=== PATIENT | male | born 1970 | race Caucasian/White ===

== ENCOUNTER 2017-03-19 15:53 | Inpatient (IN) | payer MEDICAID ==
[2017-03-19] MEDS ORDERED: 0.9 % SODIUM CHLORIDE 1000ML 1,000 ML IV PRN ×2 (16:19→18:19)
--- NOTE | 2017-03-19 16:24 | Emergency Department Record ---
History of Present Illness - General Chief complaint: Extremity Problem Stated complaint: R CALF INFECTION Time Seen by Provider: 03/19/17 16:15 Source: Patient, RN notes reviewed Mode of Arrival: Wheelchair - History of Present Illness Initial comments: red lower extremity and he states he had cellulitis before Onset/Timin -: Days(s) Location: Right, Lower Leg History of Same: Yes Radiation: None Severity scale (1-10): 5 Quality: Other Consistency: Constant Improves with: Nothing Worsens with: Nothing Associated Symptoms: Denies other symptoms - Related Data Home Medications Medication Instructions Recorded Confirmed Last Taken Diltiazem HCl [Diltiazem 24hr Er] 240 mg PO DAILY 30 Days 02/12/17 03/19/17 Unknown Hydrochlorothiazide 12.5 mg PO DAILY 30 Days 02/12/17 03/19/17 Unknown Mv-Min/FA/Vit K/Lycop/Lut/Zeax 1 each PO DAILY tab 02/12/17 03/19/17 Unknown [Ocuvite Eye + Multi Tablet] Fluticasone Propionate 1 spray IH DAILY 03/19/17 03/19/17 Unknown [Fluticasone Propionate] Montelukast Sodium [Singulair] 10 mg PO QHS 03/19/17 03/19/17 Unknown Nebivolol HCl [Bystolic] 10 mg PO DAILY 03/19/17 03/19/17 Unknown Allergies Allergy/AdvReac Type Severity Reaction Status Date / Time No Known Drug Intolerances Allergy Unknown Unverified 02/16/17 17:10 Allergies: Allergy Unknown Uncoded 12/22/13 10:12 Travel Screening - Travel/Exposure Within Last 30 Days Have you traveled within the last 30 days?: No Past Medical History - SOCIAL HISTORY Smoking Status: Former smoker Alcohol Use: Occasional Drug Use: None - RESPIRATORY Hx Respiratory Disorders: No - CARDIOVASCULAR Hx Cardio Disorders: No - NEURO Hx Neuro Disorders: No - GI Hx GI Disorders: No - Hx Genitourinary Disorders: No - ENDOCRINE Hx Endocrine Disorders: No - MUSCULOSKELETAL Hx Musculoskeletal Disorders: No - PSYCH Hx Psych Problems: No - HEMATOLOGY/ONCOLOGY Hx Hematology/Oncology Disorders: No Family Medical History Any Significant Family History?: No Course Vital Signs 03/19/17 16:02 Temperature 99.3 F Pulse Rate 115 H Respiratory 22 Rate Blood Pressure 106/58 Pulse Ox 95 - Reevaluation(s) Reevaluation #1: Discussed case with Emily and will admit to Dr. Zuniga 03/19/17 18:14 Medical Decision Making - Lab Data Result diagrams: 03/19/17 16:30 03/19/17 16:30 Disposition Clinical Impression: Cellulitis, leg Qualifiers: Laterality: right Qualified Code(s): L03.115 - Cellulitis of right lower limb Decision to Admit: Admit from ER Condition: (2) Stable Forms: Patient Portal Access Time of Disposition: 18:15 Quality - Quality Measures Quality Measures: N/A - Blood Pressure Screening Blood Pressure Classification: Normal BP Reading Systolic Measurement: 106 Diastolic Measurement: 58 Screening for High Blood Pressure: Not Eligible for Measure [[id number]] Not Eligible Reason: Active Diagnosis of Hypertension
[2017-03-19 16:42] LABS: HEMATOCRIT 42.7 % (42.0-52.0); HEMOGLOBIN 14.4 gm/dl (14.0-18.0); MEAN CELL VOLUME 88.8 fl (81-97); MEAN CORPUSCULAR HEMOGLOBIN 29.9 pg (27-33); MEAN CORPUSCULAR HGB CONC 33.7 g/dl (32-36); MEAN PLATELET VOLUME 10.3 fl (7.4-10.4); PLATELET COUNT 274 K/uL (130-400); RED BLOOD COUNT 4.81 M/uL (4.40-5.70); RED CELL DISTRIBUTION WIDTH 14.5 % (11.5-14.5)
[2017-03-19 17:00] LABS: PLATELET ESTIMATE NORMAL (NORMAL); TOXIC GRANULATION 1+
[2017-03-19 17:15] LABS: ANION GAP 10.2 (7-16); BLOOD UREA NITROGEN 13 mg/dL (9-20); CARBON DIOXIDE 26.8 mmol/L (22-30); CREATININE 0.9 mg/dL (0.66-1.25); EST GLOMERULAR FILTRATION RATE > 60 ml/min; GLUCOSE,RANDOM 122 mg/dL (70-110)
[2017-03-19] MEDS ORDERED: AMPICILLIN SODIUM/SULBACTAM NA 3 G in 0.9 % SODIUM CHLORIDE 100ML 100 ML IVPB ONE (18:06)
[2017-03-19] MEDS: AMPICILLIN SODIUM/SULBACTAM NA 3 G in 0.9 % SODIUM CHLORIDE 100ML 100 ML IVPB SCH (20:11)
[2017-03-19] MEDS: MONTELUKAST SODIUM 10MG TABLET PO SCH (22:02)
[2017-03-20] MEDS: AMPICILLIN SODIUM/SULBACTAM NA 3 G in 0.9 % SODIUM CHLORIDE 100ML 100 ML IVPB SCH ×2 (02:19→09:55)
[2017-03-20] MEDS: ACETAMINOPHEN 500 MG TABLET PO PRN (07:04)
--- NOTE | 2017-03-20 07:24 | US VENOUS DOPPLER REPORT ---
EXAM: RIGHT LOWER EXTREMITY VENOUS DOPPLER ULTRASOUND HISTORY: ACUTE RIGHT LEG PAIN AND SWELLING. TECHNIQUE: Real-time patel scale sonographic imaging of the right lower extremity deep venous system was performed with Duplex Doppler and spectral waveform analysis. Comparison: None. FINDINGS: Normal color flow and compressibility in the following vessels: Right common femoral vein, right greater saphenous vein, right profunda femoral vein, right popliteal vein, right posterior tibial vein, right peroneal vein, and right anterior tibial vein. Normal respiratory phasicity within the venous waveforms at the common femoral vein. IMPRESSION: NEGATIVE FOR DEEP VENOUS THROMBOSIS OF THE RIGHT LOWER EXTREMITY. JOB NUMBER: [id number] MTDD
--- NOTE | 2017-03-20 07:28 | History & Physical ---
History of Present Illness - Date of Service Date of Service for History & Physical: 03/20/17 - History of Present Illness Admitting Diagnosis: cellulitis of right leg History of Present Illness: 46yo male with CC of right lower leg redness. He has a history of hypertension and has had cellulitis in the past. Patient presented to the ED with redness of the right lower leg since Sunday night. Says it became hot, red and painful to touch or walk. he had had cellulitis before and felt this to be similar. It was not getting better so came in to the ED. While in the ED, patient was noted to have diffuse erythema of the right lower leg spanning the anterior paz from ankle to knee. There were no open lesions. He was noted to have an elevated wBC count of 27 with 83% neutrophils and 11% bands. he was afebrile. venous doppler was negative for DVT. blood cultures were obtained and patient was started on unasyn IV for RLE cellulitis and admitted. 03/20/17- patient states the pain in his right lower leg has improved since last night. States he was feeling very hot off and on through the night but that has improved today. He believes the redness to have improved as well. He does continue to report pain with weight bearing or palpation to the leg. He reports uncontrollable diarrhea since starting the unasyn. He has no prior history of MRSA. pcp: not established Travel Screening - Travel/Exposure Within Last 30 Days Have you traveled within the last 30 days?: No - Travel/Exposure Within Last Year Have you traveled outside the [place] in the last year?: No - Additonal Travel Details Have you been exposed to anyone with a communicable illness?: No - Travel Symptoms Symptom Screening: None Review of Systems Constitutional: Reports: Chills, Fever, Night sweats Eyes: Denies: Eye discharge, Eye pain, Photophobia, Vision change ENT: Denies: Ear pain, Throat pain Respiratory: Denies: Cough Cardiovascular: Denies: Chest pain, Edema, Syncope Endocrine: Denies: Fatigue, Heat or cold intolerance Gastrointestinal: Reports: Diarrhea. Denies: Abdominal pain, Nausea, Vomiting Musculoskeletal: Denies: Arthralgia Skin: Reports: Change in color Neurological: Denies: Confusion, Headache, Numbness, Tingling Hematological/Lymphatic: Denies: Blood Clots Past Medical History - SOCIAL HISTORY Smoking Status: Former smoker Alcohol Use: Occasional Drug Use: None - RESPIRATORY Hx Respiratory Disorders: No - CARDIOVASCULAR Hx Cardio Disorders: No - NEURO Hx Neuro Disorders: No - GI Hx GI Disorders: No - Hx Genitourinary Disorders: No - ENDOCRINE Hx Endocrine Disorders: No - MUSCULOSKELETAL Hx Musculoskeletal Disorders: No - PSYCH Hx Psych Problems: No - HEMATOLOGY/ONCOLOGY Hx Hematology/Oncology Disorders: No Family Medical History Any Significant Family History?: No H&P Meds/Allergies - Allergies Allergies: Allergies Allergy/AdvReac Type Severity Reaction Status Date / Time No Known Drug Allergies Allergy Verified 03/20/17 09:52 - Home Medications Home Medications Medication Instructions Recorded Confirmed Last Taken Diltiazem HCl [Diltiazem 24hr Er] 240 mg PO DAILY 30 Days 02/12/17 03/19/17 Unknown Hydrochlorothiazide 12.5 mg PO DAILY 30 Days 02/12/17 03/19/17 Unknown Mv-Min/FA/Vit K/Lycop/Lut/Zeax 1 each PO DAILY tab 02/12/17 03/19/17 Unknown [Ocuvite Eye + Multi Tablet] Fluticasone Propionate 1 spray IH DAILY 03/19/17 03/19/17 Unknown [Fluticasone Propionate] Montelukast Sodium [Singulair] 10 mg PO QHS 03/19/17 03/19/17 Unknown Nebivolol HCl [Bystolic] 10 mg PO DAILY 03/19/17 03/19/17 Unknown - Active Medications Active Medications: Current Medications Acetaminophen (Tylenol 500mg Tab) 1,000 mg PO Q6H PRN PRN Reason: PAIN/TEMP Last Admin: 03/20/17 07:04 Dose: 1,000 mg Enoxaparin Sodium (Lovenox) 40 mg SC DAILY [facility] Sodium Chloride () 1,000 mls @ 50 mls/hr IV .Q20H PRN PRN Reason: LARGE VOLUME IV Ampicillin Sodium/Sulbactam (Sodium 3 g/ Sodium Chloride) 100 mls @ 200 mls/hr IVPB Q6H [facility] Last Infusion: 03/20/17 02:50 Dose: Infused Montelukast Sodium (Singulair) 10 mg PO QHS [facility] Last Admin: 03/19/17 22:02 Dose: 10 mg Non-Formulary Medication (Mv-Min/Fa/Vit K/Lycop/Lut/Zeax [Ocuvite Eye + Multi Tablet]) 1 each PO DAILY [facility] Physical Exam - Vital Signs Vital Signs: Vital Signs - Last 24 Hrs Temp Pulse Resp BP BP Pulse Ox 03/20/17 05:08 98.5 F 101 H 18 137/74 94 L 03/20/17 03:10 98.5 F 103 H 18 115/70 94 L 03/19/17 22:00 98.5 F 110 H 18 121/62 97 03/19/17 21:00 110 H 18 03/19/17 19:41 138/74 03/19/17 19:30 98.6 F 116 H 16 119/59 96 - General General Appearance: Alert, Oriented x3, Cooperative, No acute distress - Head Head exam: Normal inspection - ENT ENT exam: Normal exam, Mucous membranes moist, Normal external ear exam, Normal orophraynx, TM's normal bilaterally - Neck Neck exam: Normal inspection, Full ROM. negative: Tenderness - Respiratory Respiratory exam: Normal lung sounds bilaterally. negative: Respiratory distress - Cardiovascular Cardiovascular Exam: Regular rate, Normal rhythm, Normal heart sounds - GI/Abdominal GI/Abdominal exam: Soft, Normal bowel sounds. negative: Tenderness - Extremities Extremities exam: Other (diffuse erythema with warmth and TTP from right knee to right ankle anteriorly. There are no open lesions, areas of fluctuance.) Results - Labs Result Diagrams: 03/20/17 07:40 03/20/17 07:40 - Imaging and Cardiology Venous US Status: Report reviewed (no evidence of DVT) VTE H&P Assessment - Risk for VTE Risk for VTE: Yes Risk Level: High Risk Assessment Date: 03/20/17 Risk Assessment Time: 20:48 VTE Orders Placed or Will Be Placed: Yes Plan - Inpatient Certification Inpatient Certification: Admit to inpatient care: Based on my medical assessment, after consideration of patient's risk factors (age, co-morbidities and patient presenting symptoms and acuity), I expect that this patient will remain in the hospital greater than or equal to two midnights and that the services needed warrant inpatient care because: Patient Risk Factors: [right lower extremity cellulitis, obesity, leukocytosis, elevated c-reactive protein] Estimated length of stay: [72-96h] The patient may reasonably be expected to be discharged or transferred to a hospital within 96 hours after admission to [facility]. Services needed: [IV antibiotics] Post hospital care (if known): [] I certify that my determination is in accordance with my understanding of Medicare requirements for reasonable and necessary inpatient services. 03/20/17 20:48 - Detailed Diagnosis and Plan (1) Cellulitis, leg Current Visit: Yes Status: Acute Qualifiers: Laterality: right Qualified Code(s): L03.115 - Cellulitis of right lower limb Base Code: L03.119 - CELLULITIS OF UNSPECIFIED PART OF LIMB Comment: 03/20/17- improved in redness and pain today. WBC count down to 20.7 with resolution of bandemia. crp >27. patient remains afebrile. blood cultures pending. venous doppler negative for DVT. Patient having uncontrollable diarrhea since starting unasyn. -will get c. diff stool antigen -transition to clindamycin 600mg IV q8H from unasyn -add probiotic -continue to monitor vitals q8H -repeat labs qam (2) DVT prophylaxis Current Visit: Yes Status: Acute Base Code: [id number] - Comment: 03/20/17- patient is high risk with restricted mobility and obesity -will add lovenox 40mg sq daily (3) Full code status Current Visit: Yes Status: Acute Base Code: Z78.9 - OTHER SPECIFIED HEALTH STATUS Comment: 03/20/17- patient is full code
[2017-03-20 07:47] LABS: HEMATOCRIT 40.5 % (42.0-52.0); HEMOGLOBIN 13.6 gm/dl (14.0-18.0); MEAN CELL VOLUME 88.6 fl (81-97); MEAN CORPUSCULAR HGB CONC 33.6 g/dl (32-36); MEAN PLATELET VOLUME 10.4 fl (7.4-10.4); PLATELET COUNT 246 K/uL (130-400); RED BLOOD COUNT 4.57 M/uL (4.40-5.70); RED CELL DISTRIBUTION WIDTH 14.5 % (11.5-14.5)
[2017-03-20 07:56] LABS: MEAN CORPUSCULAR HEMOGLOBIN 29.7 pg (27-33); WHITE BLOOD COUNT W/O DIFF 20.7 K/uL (4.2-12.2)
[2017-03-20 08:18] LABS: ALB/GLOB RATIO 0.9 (1.1-1.8); ALBUMIN 3.6 gm/dL (3.5-5.0); ALKALINE PHOSPHATASE 76 U/L (38-126); ALT/SGPT 53 U/L (21-72); ANION GAP 9.3 (7-16); AST/SGOT 28 U/L (17-59); BILIRUBIN,TOTAL 1.35 mg/dL (0.2-1.3); BLOOD UREA NITROGEN 14 mg/dL (9-20); CARBON DIOXIDE 25.7 mmol/L (22-30); CREATININE 0.9 mg/dL (0.66-1.25); EST GLOMERULAR FILTRATION RATE > 60 ml/min; GLUCOSE,RANDOM 149 mg/dL (70-110); TOTAL PROTEIN 7.5 gm/dL (6.3-8.2)
[2017-03-20 08:40] LABS: C-REACTIVE PROTEIN > 27.0 mg/dL (0.0-0.9)
[2017-03-20] MEDS: ENOXAPARIN 40 MG/0.4 ML SYR SC SCH (10:10)
[2017-03-20] MEDS: [UNRECOGNIZED DRUG - OTHER] PO SCH (10:13)
[2017-03-20] MEDS: CLINDAMYCIN 600MG/50ML PREMIX 600 MG/50 ML BAG IVPB SCH ×3 (11:13→19:06)
[2017-03-20] MEDS: DILTIAZEM 240 MG CAP CR PO SCH (22:02)
[2017-03-20] MEDS: MONTELUKAST SODIUM 10MG TABLET PO SCH (22:02)
[2017-03-21] MEDS: CLINDAMYCIN 600MG/50ML PREMIX 600 MG/50 ML BAG IVPB SCH ×3 (03:30→18:54)
[2017-03-21] MEDS: ACETAMINOPHEN 500 MG TABLET PO PRN (06:23)
[2017-03-21 06:29] LABS: BASO % 0.2 % (0-6); EOS % 0.5 % (0-6); GRAN % 78.8 % (47-80); HEMOGLOBIN 13.2 gm/dl (14.0-18.0); LYMPH % 12.2 % (16-45); MEAN CELL VOLUME 89.5 fl (81-97); MEAN CORPUSCULAR HEMOGLOBIN 29.5 pg (27-33); MEAN PLATELET VOLUME 10.5 fl (7.4-10.4); MONO % 8.3 % (0-9); PLATELET COUNT 243 K/uL (130-400); RED BLOOD COUNT 4.47 M/uL (4.40-5.70); RED CELL DISTRIBUTION WIDTH 14.4 % (11.5-14.5); WHITE BLOOD COUNT W/O DIFF 12.3 K/uL (4.2-12.2)
[2017-03-21 06:48] LABS: ALB/GLOB RATIO 0.9 (1.1-1.8); ALBUMIN 3.6 gm/dL (3.5-5.0); ALKALINE PHOSPHATASE 80 U/L (38-126); ALT/SGPT 55 U/L (21-72); ANION GAP 8.8 (7-16); AST/SGOT 35 U/L (17-59); BILIRUBIN,TOTAL 0.88 mg/dL (0.2-1.3); BLOOD UREA NITROGEN 9 mg/dL (9-20); CARBON DIOXIDE 28.2 mmol/L (22-30); CREATININE 0.7 mg/dL (0.66-1.25); EST GLOMERULAR FILTRATION RATE > 60 ml/min; GLUCOSE,RANDOM 137 mg/dL (70-110); TOTAL PROTEIN 7.5 gm/dL (6.3-8.2)
[2017-03-21 06:59] LABS: C-REACTIVE PROTEIN 25.8 mg/dL (0.0-0.9)
[2017-03-21] MEDS: ENOXAPARIN 40 MG/0.4 ML SYR SC SCH (10:13)
[2017-03-21] MEDS: HYDROCHLOROTHIAZIDE 12.5 MG CAPSULE PO SCH (10:13)
[2017-03-21] MEDS: DILTIAZEM 240 MG CAP CR PO SCH (10:13)
--- NOTE | 2017-03-21 10:17 | Physician Progress Note ---
Subjective - Date Date of Physician Progress Note: 03/21/17 - Subjective Subjective Comment: 03/21/17- Patient reports continued improvement in pain. States he was able to get some sleep last night. Says the pain is still worse with weight bearing but he has been able to ambulate to and from the bathroom which is better than what he was doing when he came to the ED. He denies fevers, chills, and states his diarrhea has significantly improved. Objective - Vital Signs Vital Signs: Vital Signs - Last 24 Hrs Temp Pulse Resp BP Pulse Ox 03/21/17 09:19 80 16 03/21/17 06:00 97.8 F 83 16 125/82 97 03/21/17 02:00 98.3 F 90 18 130/72 95 03/20/17 19:57 99.5 F 95 H 16 145/75 95 03/20/17 17:27 100 H 16 121/71 96 03/20/17 14:00 95 H 16 134/75 - General General Appearance: Alert, Oriented x3, Cooperative, No acute distress - Head Head exam: Normal inspection - ENT ENT exam: Normal exam, Mucous membranes moist, Normal external ear exam, Normal orophraynx, TM's normal bilaterally - Neck Neck exam: Normal inspection, Full ROM. negative: Tenderness - Respiratory Respiratory exam: Normal lung sounds bilaterally. negative: Respiratory distress - Cardiovascular Cardiovascular Exam: Regular rate, Normal rhythm, Normal heart sounds - GI/Abdominal GI/Abdominal exam: Soft, Normal bowel sounds. negative: Tenderness - Extremities Extremities exam: Other (diffuse erythema with warmth and TTP from right knee to right ankle anteriorly decreased from superior margins. There are no open lesions, areas of fluctuance.) Assessment and Plan - Assessment and Plan (1) Cellulitis, leg Current Visit: Yes Status: Acute Qualifiers: Laterality: right Qualified Code(s): L03.115 - Cellulitis of right lower limb Base Code: L03.119 - CELLULITIS OF UNSPECIFIED PART OF LIMB Comment: 03/21/17- improved in redness and pain today. WBC count down to 12.3 from 26 with crp down to 25.8 from >27. suspect body habitus somewhat contributing to elevated CRP. patient remains afebrile. prelim blood cultures with no growth to date. venous doppler negative for DVT. C. Diff negative. -continue clindamycin 600mg IV q8H. will likely transition to orals in anticipation of discharge -continue probiotic -continue to monitor vitals q8H -repeat labs qam (2) DVT prophylaxis Current Visit: Yes Status: Acute Base Code: [id number] - Comment: 03/21/17- patient is high risk with restricted mobility and obesity -will add lovenox 40mg sq daily (3) Full code status Current Visit: Yes Status: Acute Base Code: Z78.9 - OTHER SPECIFIED HEALTH STATUS Comment: 03/21/17- patient is full code Results - Labs Result Diagrams: 03/21/17 06:14 03/21/17 06:14 Labs Last 24 Hours: Laboratory Results - last 24 hr 03/20/17 03/21/17 03/21/17 15:20 06:14 06:14 WBC 12.3 H RBC 4.47 Hgb 13.2 L Hct 40.0 L MCV 89.5 MCH 29.5 MCHC 33.0 RDW 14.4 Plt Count 243 MPV 10.5 H Gran % 78.8 Lymphocytes % 12.2 L Monocytes % 8.3 Eosinophils % 0.5 Basophils % 0.2 Sodium 138 Potassium 3.8 Chloride 101 Carbon Dioxide 28.2 Anion Gap 8.8 BUN 9 Creatinine 0.7 Estimated GFR > 60 Random Glucose 137 H Calcium 8.5 Total Bilirubin 0.88 AST 35 ALT 55 Alkaline Phosphatase 80 C-Reactive Protein 25.8 H Total Protein 7.5 Albumin 3.6 Globulin 3.9 Albumin/Globulin Ratio 0.9 L C. difficile Ag & Toxin Not detected DVT/PE Assessment - Risk for VTE Risk for VTE: No Risk Level: High Risk Assessment Date: 03/20/17 Risk Assessment Time: 20:48 VTE Orders Placed or Will Be Placed: Yes - Active Medicaitons Current Medications: Current Medications Acetaminophen (Tylenol 500mg Tab) 1,000 mg PO Q6H PRN PRN Reason: PAIN/TEMP Last Admin: 03/21/17 06:23 Dose: 1,000 mg Diltiazem HCl (Cardizem Cd) 240 mg PO DAILY [facility] Last Admin: 03/20/17 22:02 Dose: 240 mg Enoxaparin Sodium (Lovenox) 40 mg SC DAILY [facility] Last Admin: 03/20/17 10:10 Dose: 40 mg Hydrochlorothiazide (Hctz 12.5mg) 12.5 mg PO DAILY [facility] Sodium Chloride () 1,000 mls @ 50 mls/hr IV .Q20H PRN PRN Reason: LARGE VOLUME IV Last Admin: 03/20/17 18:59 Dose: 50 mls/hr Clindamycin Phosphate (Cleocin 600 [id number]) 600 mg in 50 mls @ 100 mls/ hr IVPB Q8H [facility] Last Infusion: 03/21/17 04:00 Dose: Infused Montelukast Sodium (Singulair) 10 mg PO QHS [facility] Last Admin: 03/20/17 22:02 Dose: 10 mg Non-Formulary Medication (Mv-Min/Fa/Vit K/Lycop/Lut/Zeax [Ocuvite Eye + Multi Tablet]) 1 each PO DAILY [facility] Last Admin: 03/20/17 10:13 Dose: Not Given AMI Plan - Labs Result Diagrams: 03/21/17 06:14 03/21/17 06:14
[2017-03-21] MEDS ORDERED: IBUPROFEN 400 MG TABLET PO PRN (10:29)
[2017-03-21] MEDS: [UNRECOGNIZED DRUG - OTHER] PO SCH (10:53)
[2017-03-21] MEDS: MONTELUKAST SODIUM 10MG TABLET PO SCH (22:45)
[2017-03-22] MEDS: CLINDAMYCIN 600MG/50ML PREMIX 600 MG/50 ML BAG IVPB SCH ×2 (03:01→10:48)
[2017-03-22 06:52] LABS: BASO % 0.4 % (0-6); EOS % 1.4 % (0-6); GRAN % 72.9 % (47-80); HEMATOCRIT 39.6 % (42.0-52.0); LYMPH % 16.6 % (16-45); MEAN CELL VOLUME 89.8 fl (81-97); MEAN CORPUSCULAR HGB CONC 32.8 g/dl (32-36); MEAN PLATELET VOLUME 11.1 fl (7.4-10.4); MONO % 8.7 % (0-9); PLATELET COUNT 282 K/uL (130-400); RED BLOOD COUNT 4.41 M/uL (4.40-5.70); RED CELL DISTRIBUTION WIDTH 14.5 % (11.5-14.5); WHITE BLOOD COUNT W/O DIFF 10.5 K/uL (4.2-12.2)
[2017-03-22 07:01] LABS: MEAN CORPUSCULAR HEMOGLOBIN 29.4 pg (27-33)
[2017-03-22 07:05] LABS: ALB/GLOB RATIO 0.9 (1.1-1.8); ALBUMIN 3.6 gm/dL (3.5-5.0); ALKALINE PHOSPHATASE 88 U/L (38-126); ALT/SGPT 72 U/L (21-72); ANION GAP 10.8 (7-16); AST/SGOT 48 U/L (17-59); BLOOD UREA NITROGEN 11 mg/dL (9-20); CARBON DIOXIDE 29.2 mmol/L (22-30); CREATININE 0.7 mg/dL (0.66-1.25); EST GLOMERULAR FILTRATION RATE > 60 ml/min; GLUCOSE,RANDOM 119 mg/dL (70-110); TOTAL PROTEIN 7.5 gm/dL (6.3-8.2)
--- NOTE | 2017-03-22 07:50 | Discharge Summary ---
Providers Discharge Summary Date: 03/22/17 Date of admission: 03/19/17 19:19 Expected Date of Discharge: 03/22/17 Attending physician: ELVIA GRIGSBY Physical Exam - Vital Signs Vital Signs: Vital Signs - Last 24 Hrs Temp Pulse Resp BP Pulse Ox 03/22/17 06:00 97.7 F 84 26 H 138/84 95 03/22/17 02:00 97.6 F 79 26 H 128/69 95 03/21/17 22:00 98.0 F 82 26 H 146/76 95 03/21/17 18:06 99.6 F 95 H 19 134/76 96 03/21/17 15:20 97.8 F 20 129/72 97 03/21/17 10:26 98.0 F 80 18 142/74 96 03/21/17 09:19 80 16 - General General Appearance: Alert, Oriented x3, Cooperative, No acute distress - Head Head exam: Normal inspection - ENT ENT exam: Normal exam, Mucous membranes moist, Normal external ear exam, Normal orophraynx, TM's normal bilaterally - Neck Neck exam: Normal inspection, Full ROM. negative: Tenderness - Respiratory Respiratory exam: Normal lung sounds bilaterally. negative: Respiratory distress - Cardiovascular Cardiovascular Exam: Regular rate, Normal rhythm, Normal heart sounds Peripheral Pulses: 2+: Dorsalis Pedis (R), Dorsalis Pedis (L) - GI/Abdominal GI/Abdominal exam: Soft, Normal bowel sounds. negative: Tenderness - Extremities Extremities exam: Pedal edema (right lower soft tissue swelling; neurovascularly intact distally), Tenderness (ttp right lower extremity), Other (diffuse erythema with warmth and TTP from right knee to right ankle anteriorly decreased from superior margins. There are no open lesions, areas of fluctuance. ) Hospitalization - Hospitalization Admission Diagnosis: cellulitis of right leg - Problem List/Discharge Diagnosis (1) Cellulitis, leg Current Visit: Yes Status: Acute Discharge Diagnosis: Laterality: right Qualified Code(s): L03.115 - Cellulitis of right lower limb Base Code: L03.119 - CELLULITIS OF UNSPECIFIED PART OF LIMB Comment: 03/22/17- continues to improve in redness and pain today. WBC count down to 10.5 from 26 with crp down to 15.1 from >27. suspect body habitus somewhat contributing to elevated CRP. patient remains afebrile. prelim blood cultures with no growth to date. venous doppler negative for DVT. C. Diff negative. -transition to clindamycin 300mg po q6H for total 10 day course. -will do script for tramdol 50mg po TID #21 prn severe pain. continue ibuprofen and tylenol as needed for mild to moderate pain. -continue probiotic -patient will follow up with [facility] in the next 7-10 days. [facility] day care home mother scheduled patient to follow up with Jaye next Sunday. patient states he has enough blood pressure medication until that appointment but will likely need refills at that point. (2) DVT prophylaxis Current Visit: Yes Status: Acute Base Code: [id number] - Comment: 03/22/17- patient is high risk with restricted mobility and obesity - lovenox 40mg sq daily (3) Full code status Current Visit: Yes Status: Acute Base Code: Z78.9 - OTHER SPECIFIED HEALTH STATUS Comment: 03/22/17- patient is full code - Hospitalization Course Disposition: Home, Self-Care Hospital Course: 46yo male with CC of right lower leg redness. He has a history of hypertension and has had cellulitis in the past. Patient presented to the ED with redness of the right lower leg since Sunday night. Says it became hot, red and painful to touch or walk. he had had cellulitis before and felt this to be similar. It was not getting better so came in to the ED. While in the ED, patient was noted to have diffuse erythema of the right lower leg spanning the anterior paz from ankle to knee. There were no open lesions. He was noted to have an elevated wBC count of 27 with 83% neutrophils and 11% bands. he was afebrile. venous doppler was negative for DVT. blood cultures were obtained and patient was started on unasyn IV for RLE cellulitis and admitted. 03/20/17- patient states the pain in his right lower leg has improved since last night. States he was feeling very hot off and on through the night but that has improved today. He believes the redness to have improved as well. He does continue to report pain with weight bearing or palpation to the leg. He reports uncontrollable diarrhea since starting the unasyn. He has no prior history of MRSA. 03/21/17- Patient reports continued improvement in pain. States he was able to get some sleep last night. Says the pain is still worse with weight bearing but he has been able to ambulate to and from the bathroom which is better than what he was doing when he came to the ED. He denies fevers, chills, and states his diarrhea has significantly improved. 03/22/17- Patient states he continues to improve. Says the redness is decreasing as is the pain. he continues to have pain with ambulation but not severe. Denies fevers through the night. says his pain is well controlled with tylenol and ibuprofen except with ambulation. has taken tramadol in the past with good results and no side effects. he has enough bp medication until his appointment next week. pcp: had been with [facility] but will now be establishing with [facility] family practice Abnormal Labs: Abnormal Lab Results 03/20/17 03/20/17 03/21/17 Range/Units 07:40 07:40 06:14 WBC 20.7 H* 12.3 H (4.2-12.2) K/uL Hgb 13.6 L 13.2 L (14.0-18.0) gm/dl Hct 40.5 L 40.0 L (42.0-52.0) % MPV 10.5 H (7.4-10.4) fl Neutrophils % 88.0 H (47-80) % Lymphocytes % 12.2 L (16-45) % Lymphocytes 5.0 L (16-45) % Random Glucose 149 H (70-110) mg/dL Total Bilirubin 1.35 H (0.2-1.3) mg/dL C-Reactive Protein > 27.0 H (0.0-0.9) mg/dL Albumin/Globulin Ratio 0.9 L (1.1-1.8) 03/21/17 03/22/17 03/22/17 Range/Units 06:14 06:15 06:15 WBC (4.2-12.2) K/uL Hgb 13.0 L (14.0-18.0) gm/dl Hct 39.6 L (42.0-52.0) % MPV 11.1 H (7.4-10.4) fl Neutrophils % (47-80) % Lymphocytes % (16-45) % Lymphocytes (16-45) % Random Glucose 137 H 119 H (70-110) mg/dL Total Bilirubin (0.2-1.3) mg/dL C-Reactive Protein 25.8 H (0.0-0.9) mg/dL Albumin/Globulin Ratio 0.9 L 0.9 L (1.1-1.8) Condition at Discharge: (2) Stable Discharge Medications - Discharge Medications Prescriptions: Clindamycin HCl 300 mg PO Q6HR #28 capsule Tramadol HCl [Ultram] 50 mg PO TID PRN #21 tab PRN Reason: Pain - Severe (8-10) Home Medications: Ambulatory Orders Diltiazem HCl [Diltiazem 24Hr ER] 240 mg PO DAILY 30 Days 02/12/17 [Last Taken Unknown] Hydrochlorothiazide 12.5 mg PO DAILY 30 Days 02/12/17 [Last Taken Unknown] Mv-Min/FA/Vit K/Lycop/Lut/Zeax [Ocuvite Eye + Multi Tablet] 1 each PO DAILY tab 02/12/17 [Last Taken Unknown] Fluticasone Propionate 1 spray IH DAILY 03/19/17 [Last Taken Unknown] Montelukast Sodium [Singulair] 10 mg PO QHS 03/19/17 [Last Taken Unknown] Nebivolol HCl [Bystolic] 10 mg PO DAILY 03/19/17 [Last Taken Unknown] Clindamycin HCl 300 mg PO Q6HR #28 capsule 03/22/17 [Last Taken Unknown] Tramadol HCl [Ultram] 50 mg PO TID PRN #21 tab 03/22/17 [Last Taken Unknown] Discharge Plan - Discharge Instructions Activity at Discharge: Resume Usual Activities As Tolerated Diet at Discharge: Low Fat, Low Cholesterol, Low Salt Diet Additional Instructions: Continue Clindamycin 300mg by mouth every 6 hours for 7 more days Continue to take a probiotic at home as needed May use Tramadol 50mg by mouth up to 3 times daily for severe pain Follow up with Jaye PERKINS in the [facility] Please call with any questions or concerns Return to ED for any new/worsening symptoms
[2017-03-22 08:14] LABS: C-REACTIVE PROTEIN 15.1 mg/dL (0.0-0.9)
[2017-03-22] MEDS: [UNRECOGNIZED DRUG - OTHER] PO SCH (09:48)
[2017-03-22] MEDS: DILTIAZEM 240 MG CAP CR PO SCH (09:49)
[2017-03-22] MEDS: ENOXAPARIN 40 MG/0.4 ML SYR SC SCH (09:50)
[2017-03-22] MEDS: HYDROCHLOROTHIAZIDE 12.5 MG CAPSULE PO SCH (09:50)
--- NOTE | 2017-04-04 10:02 | Emergency Department Record ---
History of Present Illness - General Chief complaint: Extremity Problem Stated complaint: R CALF INFECTION Time Seen by Provider: 03/19/17 16:15 Source: Patient, RN notes reviewed Mode of Arrival: Stretcher - History of Present Illness Onset/Timin -: Days(s) Location: Right, Lower Leg History of Same: Yes Radiation: None Severity scale (1-10): 5 Quality: Other Consistency: Constant Improves with: Nothing Worsens with: Nothing Associated Symptoms: Denies other symptoms - Related Data Home Medications Medication Instructions Recorded Confirmed Last Taken Diltiazem HCl [Diltiazem 24Hr ER] 240 mg PO DAILY 30 Days 02/12/17 03/19/17 Unknown Hydrochlorothiazide 12.5 mg PO DAILY 30 Days 02/12/17 03/19/17 Unknown Mv-Min/FA/Vit K/Lycop/Lut/Zeax 1 each PO DAILY tab 02/12/17 03/19/17 Unknown [Ocuvite Eye + Multi Tablet] Fluticasone Propionate 1 spray IH DAILY 03/19/17 03/19/17 Unknown Montelukast Sodium [Singulair] 10 mg PO QHS 03/19/17 03/19/17 Unknown Nebivolol HCl [Bystolic] 10 mg PO DAILY 03/19/17 03/19/17 Unknown Previous Rx's Medication Instructions Recorded Clindamycin HCl 300 mg PO Q6HR #28 capsule 03/22/17 Tramadol HCl [Ultram] 50 mg PO TID PRN #21 tab 03/22/17 Allergies Allergy/AdvReac Type Severity Reaction Status Date / Time No Known Drug Allergies Allergy Unverified 03/27/17 07:47 Travel Screening - Travel/Exposure Within Last 30 Days Have you traveled within the last 30 days?: No - Travel/Exposure Within Last Year Have you traveled outside the [place] in the last year?: No - Additonal Travel Details Have you been exposed to anyone with a communicable illness?: No - Travel Symptoms Symptom Screening: None Review of Systems Constitutional: Reports: Chills, Fever, Night sweats Eyes: Denies: Eye discharge, Eye pain, Photophobia, Vision change ENT: Denies: Ear pain, Throat pain Respiratory: Denies: Cough Cardiovascular: Denies: Chest pain, Edema, Syncope Endocrine: Denies: Fatigue, Heat or cold intolerance Gastrointestinal: Reports: Diarrhea. Denies: Abdominal pain, Nausea, Vomiting Musculoskeletal: Denies: Arthralgia Skin: Reports: Change in color Neurological: Denies: Confusion, Headache, Numbness, Tingling Hematological/Lymphatic: Denies: Blood Clots Past Medical History - SOCIAL HISTORY Smoking Status: Former smoker Alcohol Use: Occasional Drug Use: None - RESPIRATORY Hx Respiratory Disorders: No - CARDIOVASCULAR Hx Cardio Disorders: No - NEURO Hx Neuro Disorders: No - GI Hx GI Disorders: No - Hx Genitourinary Disorders: No - ENDOCRINE Hx Endocrine Disorders: No - MUSCULOSKELETAL Hx Musculoskeletal Disorders: No - PSYCH Hx Psych Problems: No - HEMATOLOGY/ONCOLOGY Hx Hematology/Oncology Disorders: No Family Medical History Any Significant Family History?: No Physical Exam - General General Appearance: Alert, Oriented x3, Cooperative, No acute distress - Head Head exam: Normal inspection - Eye Eye exam: Normal appearance, PERRL Pupils: Normal accommodation - ENT ENT exam: Normal exam, Mucous membranes moist, Normal external ear exam, Normal orophraynx, TM's normal bilaterally Ear exam: Normal external inspection. negative: External canal tenderness Nasal Exam: Normal inspection. negative: Discharge, Sinus tenderness Mouth exam: Normal external inspection, Tongue normal Teeth exam: Normal inspection. negative: Dental caries Throat exam: Normal inspection. negative: Tonsillar erythema, Tonsillar exudate - Neck Neck exam: Normal inspection, Full ROM. negative: Tenderness - Respiratory Respiratory exam: Normal lung sounds bilaterally. negative: Respiratory distress - Cardiovascular Cardiovascular Exam: Regular rate, Normal rhythm, Normal heart sounds - GI/Abdominal GI/Abdominal exam: Soft, Normal bowel sounds. negative: Tenderness - Rectal Rectal exam: Deferred - exam: Deferred - Extremities Extremities exam: Full ROM, Normal capillary refill, Other (leg red from the knee down). negative: Tenderness - Back Back exam: Reports: Normal inspection, Full ROM. Denies: Muscle spasm, Rash noted, Tenderness - Neurological Neurological exam: Alert, Normal gait, Oriented X3, Reflexes normal - Psychiatric Psychiatric exam: Normal affect, Normal mood - Skin Skin exam: Rash (red leg from the knee down and completely around leg) Course Vital Signs 03/19/17 03/19/17 03/19/17 16:02 19:30 19:41 Temperature 99.3 F 98.6 F Pulse Rate 115 H Pulse Rate [ 116 H Pulse Ox Probe] Respiratory 22 16 Rate Blood Pressure 106/58 138/74 Blood Pressure 119/59 [Left Arm] Pulse Ox 95 96 Medical Decision Making - Lab Data Result diagrams: 03/22/17 06:15 03/22/17 06:15 Lab Results 03/19/17 03/19/17 Range/Units 16:30 16:30 WBC 27.0 H* (4.2-12.2) K/uL RBC 4.81 (4.40-5.70) M/uL Hgb 14.4 (14.0-18.0) gm/dl Hct 42.7 (42.0-52.0) % MCV 88.8 (81-97) fl MCH 29.9 (27-33) pg MCHC 33.7 (32-36) g/dl RDW 14.5 (11.5-14.5) % Plt Count 274 (130-400) K/uL MPV 10.3 (7.4-10.4) fl Neutrophils % 83.0 H (47-80) % Band Neutrophils % 11.0 H (0-5) % Eosinophils % Not Reportable Basophils % Not Reportable Lymphocytes 4.0 L (16-45) % Monocytes 2.0 (0-9) % Toxic Granulation 1+ Platelet Estimate Normal (NORMAL) RBC Morphology Normal Sodium 137 (136-145) mmol/L Potassium 3.8 (3.5-5.1) mmol/L Chloride 100 (98-107) mmol/L Carbon Dioxide 26.8 (22-30) mmol/L Anion Gap 10.2 (7-16) BUN 13 (9-20) mg/dL Creatinine 0.9 (0.66-1.25) mg/dL Estimated GFR > 60 ml/min Random Glucose 122 H (70-110) mg/dL Calcium 8.7 (8.5-10.1) mg/dL Disposition Clinical Impression: Cellulitis, leg Qualifiers: Laterality: right Qualified Code(s): L03.115 - Cellulitis of right lower limb Disposition: Still a Patient at [facility] Condition: (2) Stable Quality - Quality Measures Quality Measures: N/A - Blood Pressure Screening Blood Pressure Classification: Pre-Hypertensive BP Reading Systolic Measurement: 138 Diastolic Measurement: 74 Screening for High Blood Pressure: Not Eligible for Measure [G8784] Not Eligible Reason: Active Diagnosis of Hypertension
== END 2017-03-22 13:50 | disposition home or self-care (01) | DRG 603 ==
LOC: ER 15:53 → UNDOADMIN 19:19 → MEDSURG 19:19 → UNDODISIN 03-22 13:50
PROVIDERS: ADMIT Family Medicine; ATTEND Family Medicine
DX: L03.115 Cellulitis of right lower limb (principal); Z78.9 Other specified health status; I10 Essential (primary) hypertension
CPT/HCPCS: 80048; 80053; 83036; 85025; 85027; 86140; 87493; 96365; 99223; 99233; 99238; 99285; J0295; J1650

== ENCOUNTER 2018-06-14 21:56 | Emergency (ER) | payer MEDICAID ==
[2018-06-14] MEDS ORDERED: KETOROLAC 30 MG/ML VIAL IM ONE (22:28)
--- NOTE | 2018-06-14 22:33 | Emergency Department Record ---
History of Present Illness - General Chief Complaint: Back Pain/Injury Stated Complaint: LOWER BACK Time Seen by Provider: 06/14/18 22:21 Source: Patient Mode of Arrival: Ambulatory Limitations: No limitations - History of Present Illness Initial Comments: The patient was at work and was carrying an object and lifted and twisted and felt pain to the L lower back. The patient is sharp and stabbing and is worse with any movement and walking. He denies any radiation of the pain down the legs or any leg numbness, tingling, weakness, or any bowel or bladder issues. The patient did go home to change prior to coming here and noticed his legs also were swollen and slightly red. He states he does have a hx of "cellulitis" and also is morbidly obese. MD Complaint: Back pain Onset/Timin -: Hour(s) Place: Work Radiation: None Severity scale (1-10): 6 Quality: Aching, Dull Consistency: Constant Worsens With: Movement, Sitting upright Context: Turning/twisting Associated Symptoms: Denies other symptoms - Related Data Previous Rx's Medication Instructions Recorded Cephalexin [Keflex] 500 mg PO QID #28 cap 06/14/18 Naproxen [Naprosyn] 500 mg PO BID #14 tablet. 06/14/18 Allergies Allergy/AdvReac Type Severity Reaction Status Date / Time No Known Drug Allergies Allergy Verified 06/14/18 22:14 Travel Screening - Travel/Exposure Within Last 30 Days Have you traveled within the last 30 days?: No - Travel Symptoms Symptom Screening: None Review of Systems Constitutional: Denies: Chills, Fever Eyes: Denies: Eye discharge ENT: Denies: Congestion Respiratory: Denies: Cough, Dyspnea Cardiovascular: Denies: Chest pain, Dyspnea on exertion Endocrine: Denies: Fatigue Past Medical History - SOCIAL HISTORY Smoking Status: Former smoker - RESPIRATORY Hx Respiratory Disorders: Yes Hx Sleep Apnea: Yes Hx of CPAP: No - CARDIOVASCULAR Hx Cardio Disorders: Yes Hx Edema: Yes Hx Heart Attack: Yes Comment:: high cholesterol - NEURO Hx Neuro Disorders: No - GI Hx GI Disorders: No - Hx Genitourinary Disorders: No - ENDOCRINE Hx Endocrine Disorders: No - MUSCULOSKELETAL Hx Musculoskeletal Disorders: Yes Comment:: cellulitis - PSYCH Hx Psych Problems: Yes Hx Depression: Yes - HEMATOLOGY/ONCOLOGY Hx Hematology/Oncology Disorders: No Family Medical History Any Significant Family History?: Yes Hx Alcohol Use: Father Hx Heart Disease: Father, Mother, Grandparents Physical Exam - General General Appearance: Alert, Oriented x3, Cooperative, No acute distress - Head Head exam: Atraumatic, Normocephalic, Normal inspection - Eye Eye exam: Normal appearance, PERRL, EOMI - Neck Neck exam: Normal inspection, Full ROM. negative: Tenderness - Respiratory Respiratory exam: Normal lung sounds bilaterally. negative: Respiratory distress - Cardiovascular Cardiovascular Exam: Regular rate, Normal rhythm, Normal heart sounds - GI/Abdominal GI/Abdominal exam: Soft, Normal bowel sounds. negative: Tenderness - Extremities Extremities exam: negative: Normal inspection (There is significant bilateral pedal edema with slight erythema from the mid tibial area distally. There is mild tenderness to the anterior lower legs distally. There is no pain or tenderness behind the knees or over the thighs bilaterally. ) Image of Full Body: 1 - Area of erythema. 2 - Area of erythema. - Back Back exam: Reports: Normal inspection, Paraspinal tenderness (There is reproducible tenderness to the L lateral L3-5 area.). Denies: Vertebral tenderness Image of Body Front/Back: 1 - Area of pain and tenderness. - Neurological Neurological exam: Alert, Normal gait, Oriented X3, Reflexes normal. negative: Abnormal gait, Motor sensory deficit - Psychiatric Psychiatric exam: negative: Anxious - Skin Skin exam: Rash Course Vital Signs 06/14/18 22:10 Temperature 98.4 F Pulse Rate [ 90 Pulse Ox Probe] Respiratory 20 Rate Blood Pressure 145/85 [Right Arm] Pulse Ox 98 - Reevaluation(s) Reevaluation #1: The patient is doing better at this time. His pain is improved and he is ambulating normally. I did recommend transfer for a leg doppler tonight but the patient is refusing. I explained to him that an undiagnosed DVT can lead to chronic leg swelling, pain and even a PE. I also explained that an untreated PE can cause the patient to have CP, hypotension, an [place] and even . The patient understands the risks of refusing the test but states he will go to another hospital tomorrow for the dopplers. 06/14/18 22:59 Medical Decision Making - Data Complexity MDM Data: Labs Ordered and/or Reviewed - Lab Data Result diagrams: 06/14/18 22:32 06/14/18 22:32 Disposition Disposition: Discharge Clinical Impression: Low back strain Qualifiers: Encounter type: initial encounter Qualified Code(s): S39.012A - Strain of muscle, fascia and tendon of lower back, initial encounter Disposition: Home, Self-Care Condition: (2) Stable Instructions: Low Back Strain (ED) Additional Instructions: Please take the Naprosyn for pain and also take the Keflex as directed. Please double your HCTZ to 50 mg daily for 7 days and use compression stockings to decrease the swelling to your legs. Please return to the ER if you change your mind about getting a leg doppler performed. Please see your family doctor in 3- 5 days for recheck and return to the ER for any worsening symptoms. Prescriptions: Cephalexin [Keflex] 500 mg PO QID #28 cap Naproxen [Naprosyn] 500 mg PO BID #14 tablet.dr Forms: Patient Portal Access Time of Disposition: 23:04 Quality - Quality Measures Quality Measures: N/A - Blood Pressure Screening View Details: Yes Does Patient Have Any of the Following: Active Dx of HTN Blood Pressure Classification: Pre-Hypertensive BP Reading Systolic Measurement: 145 Diastolic Measurement: 85 Screening for High Blood Pressure: Patient Exclusion, Hx of HTN [G9744]
[2018-06-14 22:40] LABS: BASO % 0.5 % (0-6); EOS % 3.9 % (0-6); GRAN % 63.4 % (47-80); HEMATOCRIT 42.2 % (42.0-52.0); HEMOGLOBIN 13.8 gm/dl (14.0-18.0); MEAN CELL VOLUME 87.9 fl (81-97); MEAN CORPUSCULAR HEMOGLOBIN 28.7 pg (27-33); MEAN CORPUSCULAR HGB CONC 32.7 g/dl (32-36); MEAN PLATELET VOLUME 10.1 fl (7.4-10.4); MONO % 7.2 % (0-9); PLATELET COUNT 330 K/uL (130-400); RED CELL DISTRIBUTION WIDTH 14.3 % (11.5-14.5); WHITE BLOOD COUNT W/O DIFF 9.3 K/uL (4.2-12.2)
[2018-06-14] MEDS ORDERED: CEPHALEXIN 500 MG CAPSULE PO STA (22:44)
[2018-06-14 22:47] LABS: BLOOD UREA NITROGEN 17 mg/dL (6-20)
[2018-06-14 22:48] LABS: CREATININE 0.7 mg/dL (0.7-1.2); EST GLOMERULAR FILTRATION RATE > 60 mL/min; TOTAL PROTEIN 7.1 g/dL (6.6-8.7)
[2018-06-14 22:50] LABS: GLUCOSE,RANDOM 121 mg/dL (74-109)
[2018-06-14 22:53] LABS: ALB/GLOB RATIO 1.2 (1.1-1.8); ALBUMIN 3.8 g/dL (4.0-5.0); ALKALINE PHOSPHATASE 98 U/L (40-129); ALT/SGPT 25 U/L (<41); AST/SGOT 19 U/L (10.0-50.0)
[2018-06-14] MEDS ORDERED: FUROSEMIDE 40 MG TABLET PO ONE (22:58)
== END 2018-06-14 23:16 | disposition home or self-care (01) ==
LOC: ER 21:56
DX: S39.012A Strain of muscle, fascia and tendon of lower back, initial encounter (principal); X50.0XXA Overexertion from strenuous movement or load, initial encounter; Y92.511 Restaurant or cafe as the place of occurrence of the external cause; Y99.0 Civilian activity done for income or pay; Z87.891 Personal history of nicotine dependence; I10 Essential (primary) hypertension; I25.2 Old myocardial infarction
CPT/HCPCS: 99283; 96372; 99284; 85025; 80053; J1885